=== PATIENT | male | born 1965 | race Caucasian/White ===

== ENCOUNTER 2023-02-11 09:12 | Emergency (ER) | payer MEDICAID ==
[~2023-02-11] VITALS: Ht 157.5 cm; Wt 72.0 kg
[2023-02-11 09:14] VITALS: O2SAT 98
[2023-02-11] MEDS ORDERED: CLOT45CR62 VG (13:19)
[2023-02-11 14:26] VITALS: BP 128/74; PULSE 75; RESP 20; TEMP 98.1
== END 2023-02-11 14:27 | disposition home or self-care (01) ==
LOC: ER 09:12
DX: N47.6 Balanoposthitis (principal); E11.9 Type 2 diabetes mellitus without complications
CPT/HCPCS: 99282